=== PATIENT | male | born 1970 | race Caucasian/White ===

== ENCOUNTER 2021-09-23 11:18 | Emergency (ER) | payer OTHER, SELFPAY ==
[2021-09-23 11:38] VITALS: BP 153/96; PULSE 77; RESP 18; TEMP 36.7; O2SAT 96; BMI 26.4
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
== END 2021-09-23 13:29 | disposition home or self-care (01) ==
PROVIDERS: Emergency Provider Emergency Medicine Emergency Medical Services; PCP Internal Medicine
DX: S70.01XA Contusion of right hip, initial encounter (principal); S50.811A Abrasion of right forearm, initial encounter; V43.52XA Car driver injured in collision with other type car in traffic accident, initial encounter; Y93.89 Activity, other specified; Y92.410 Unspecified street and highway as the place of occurrence of the external cause; Y99.9 Unspecified external cause status
CPT/HCPCS: 99282; 99283

== ENCOUNTER 2022-02-14 15:16 | Outpatient (REF) | payer OTHER, SELFPAY ==
[2022-02-14 15:32] LABS: MANUAL DIFF FLAG NO
[2022-02-14 15:57] LABS: Basophils Absolute Auto 0.1 X10*3/uL (0.0-0.2); Basophils Percent Auto 0.6 % (0-2); Eosinophils Absolute Auto 0.3 X10*3/uL (0.0-0.4); Eosinophils Percent Auto 3.3 % (0-4); Hematocrit 46.8 % (42.0-52.0); Hemoglobin 15.5 g/dl (14.0-18.0); Imm Gran Abs Auto 0.02 X10*3/uL (0.00-0.03); Imm Gran Pct Auto 0.2 % (0.0-0.4); Lymphocytes Absolute Auto 2.7 X10*3/uL (1.2-4.9); Mean Corpuscular HGB Conc 33.1 g/dl (31.0-36.0); Mean Corpuscular Hemoglobin 29.9 pg (27.0-33.0); Mean Corpuscular Volume 90.3 fL (80.0-98.0); Monocytes Absolute Auto 0.7 X10*3/uL (0.1-1.2); Monocytes Percent Auto 7.3 % (2-11); Neutrophils Absolute Auto 6.1 x10*3/uL (2.0-8.3); Neutrophils Percent Auto 61.6 % (45-73); Platelet Count 307 X10*3/uL (160-400); Red Blood Count 5.18 X10*6/uL (4.60-5.80); Red Cell Distribution Width 12.7 % (11.0-16.0); White Blood Count 9.8 X10*3/uL (4.8-10.8)
[2022-02-14 16:20] LABS: Alanine Aminotransferase 38 U/L (0-40); Albumin Level 4.4 g/dL (3.5-5.0); Alkaline Phosphatase 109 U/L (39-117); Anion Gap 14 (12-20); Aspartate Amino Transferase 24 U/L (5-37); Bilirubin Total 0.6 mg/dL (0.0-1.0); Blood Urea Nitrogen 16 mg/dL (9-16); Calcium 9.9 mg/dL (8.4-10.2); Carbon Dioxide 28 mmol/L (22-29); Chloride 105 mmol/L (96-108); Cholesterol 185 mg/dL; Estimated Glomerular Filt Rate > 60; Glucose Fasting 116 mg/dL (60-99); HDL Cholesterol 35 mg/dL; LDL Cholesterol Calculated 119 mg/dl; Potassium 4.9 mmol/L (3.3-5.1); Sodium 142 mmol/L (135-145); Total Protein 7.2 g/dL (6.5-8.0); Triglycerides 157 mg/dL
== END 2022-02-14 15:17 | disposition home or self-care (01) ==
LOC: HO.LAB 15:16
PROVIDERS: PCP Internal Medicine; Visit Provider Internal Medicine
DX: Z00.00 Encounter for general adult medical examination without abnormal findings (principal)
CPT/HCPCS: 36415; 80053; 80061; 85025

== ENCOUNTER 2022-06-13 21:32 | Emergency (ER) | payer OTHER, SELFPAY ==
--- NOTE | ~2022-06-13 | CT_ITS ---
EXAMINATION: CT ANGIOGRAM CHEST CLINICAL INFORMATION: Asymmetrical hypertension, question coarctation COMPARISON: None available. TECHNIQUE: Multiple axial images were obtained through the chest after the administration of 70 mL of Omnipaque 350 intravenous contrast. Extensive vascular post-processing including two-dimensional and three-dimensional reformatted images were created and reviewed on an independent workstation. This CT examination was performed using dose optimization techniques as appropriate, variously including the following: *Automated exposure control *Adjustment of mA and/or kV according to patient size (this includes techniques or standardized protocols for targeted exams where dose is matched to indication/reason for exam; i.e. extremities or head) *Use of iterative reconstruction technique DLP: 371 mGy-cm FINDINGS: No evidence of aortic aneurysm or dissection. Mild ductus diverticulum noted in the proximal descending aorta. No aortic luminal narrowing to suggest aortic coarctation. The descending aorta is mildly tortuous. Visualized segments of the great vessels off the aortic arch appear unremarkable. No filling defects are seen in the main, lobar, or segmental pulmonary arteries to suggest the presence of pulmonary emboli. Mild upper lobe predominant emphysema. No regions of consolidation bilaterally. No pneumothorax or pleural effusion. Minimal atelectasis in the basilar right lower lobe. The visualized thyroid gland is unremarkable. There are subcentimeter mediastinal lymph nodes within the range of normal variation. Cardiac size is within normal limits; no pericardial effusion. Mild coronary artery calcifications. No axillary lymphadenopathy is present. Visualized portions of the upper abdomen are within normal limits. Multilevel endplate osteophytes noted in the spine. CT/CT angio chest aorta IMPRESSION: 1. No evidence of aortic coarctation or acute aortic pathology. 2. Mild upper lobe predominant emphysema. 3. Mild coronary artery calcifications. Correlation with cardiac risk factors is recommended.
[2022-06-13 21:33] VITALS: BP 199/116; PULSE 78; RESP 18; TEMP 36.8; O2SAT 98; BMI 25.8
--- NOTE | 2022-06-13 21:36 | ECG_ITS ---
Test Reason : HEADACHE Blood Pressure : / mmHG Vent. Rate : 069 BPM Atrial Rate : 069 BPM P-R Int : 100 ms QRS Dur : 090 ms QT Int : 354 ms P-R-T Axes : 038 049 046 degrees QTc Int : 379 ms Sinus rhythm with short NM Otherwise normal ECG No previous ECGs available Referred By: Carlos Yanez Electronically Signed By:DOMENIC DOYLE
--- NOTE | 2022-06-13 21:37 | ED_ITS ---
HPI - General Adult General Chief complaint: Headache <Carlos Yanez - Last Filed: 06/13/22 21:40> Stated complaint: elevated bp taken at home 173/115 <Carlos Yanez - Last Filed: 06/13/22 21:40> Time Seen by Provider: 06/14/22 00:20 <Carlos Yanez - Last Filed: 06/13/22 21:40> Source: patient <Nasir Nichols MD - Last Filed: 06/14/22 01:56> Mode of arrival: ambulatory <Nasir Nichols MD - Last Filed: 06/14/22 01:56> Limitations: no limitations <Nasir Nichols MD - Last Filed: 06/14/22 01:56> History of Present Illness HPI narrative: Patient history of hypertension on carvedilol 6.25 mg twice daily for the last 5 years with well controlled blood pressure comes here as having some chest is has venous and head heaviness last 24 hours check his blood pressure was 173/115 at home no intake of NSAIDs no stress no change in lifestyle <Nasir Nichols MD - Last Filed: 06/14/22 01:56> Related Data Home medications: Previous Rx's Medication Instructions Recorded losartan 25 mg tablet 25 mg PO DAILY #30 tabs 06/14/22 <Carlos Yanez - Last Filed: 06/13/22 21:40> Allergies/adverse reactions: Allergies Allergy/AdvReac Type Severity Reaction Status Date / Time No Known Allergies Allergy Unverified 10/24/19 14:53 <Carlos Yanez - Last Filed: 06/13/22 21:40> Review of Systems Review of Systems: Yes all other systems are reviewed and are negative <Nasir Nichols MD - Last Filed: 06/14/22 01:56> [facility] Social History Social History: Social History Alcohol intake: current Alcohol intake frequency: a few times a week Smoked in Last 30 Days: Yes Use of substances other than those prescribed or required for medical reasons: No Advance Directives: No Advance Directives Information Provided: Yes <Carlos Yanez - Last Filed: 06/13/22 21:40> Physical Exam ED Vital Signs: Vital Signs - 24 hr 06/13/22 21:33 06/14/22 00:04 Temperature 98.2 F 98.2 F Pulse Rate 78 68 Respiratory Rate 18 15 Blood Pressure 199/116 H 179/94 H Pulse Oximetry 98 96 Oxygen Delivery Method Room Air Room Air BMI result Body Mass Index 25.8 <Carlos Yanez - Last Filed: 06/13/22 21:40> Vital Signs - 24 hr 06/13/22 21:33 06/14/22 00:04 Temperature 98.2 F 98.2 F Pulse Rate 78 68 Respiratory Rate 18 15 Blood Pressure 199/116 H 179/94 H Pulse Oximetry 98 96 Oxygen Delivery Method Room Air Room Air BMI result Body Mass Index 25.8 <Nasir Nichols MD - Last Filed: 06/14/22 01:56> Appearance: Alert. Oriented X3. No acute distress. Eyes: PERRLA, No Nystagmus ENT: Pharynx normal. Oral Mucosa moist Neck: Normal inspection. Neck supple. CVS: Normal heart rate and rhythm. Pulses normal. Respiratory: No respiratory distress. Equal air entry bilateral, no wheezing /rales/rhonchi Abdomen: Soft and nontender. Bowel sounds are present, no mass palpable, no CVA tenderness Skin: Skin warm and dry. Normal skin color. Normal skin turgor. Extremities: No lower extremity edema. No calf tenderness Neuro: Oriented X 3. No motor deficit. No sensory deficit.No cerebellar signs , cranial nerves II-XII intact <Nasir Nichols MD - Last Filed: 06/14/22 01:56> Course Course Course Narrative: 51-year-old male with past medical history significant for high blood pressure, high cholesterol presents for evaluation of ?feeling funny and high blood pressure. ? Patient reports that he checked his blood pressure because he was feeling funny and complained of a headache, dizziness and some mild left- sided chest pain. He took his blood pressure and it was ?175/113. He was elevated to 199/116. The patient takes carvedilol 6.25mg b.i.d. for his blood pressure. Denies any recent changes to his medications. Given the chest pain and elevated blood pressure I ordered an EKG and labs. <Carlos Yanez - Last Filed: 06/13/22 21:40> Medications Administered Discontinued Medications Generic Name Dose Route Start Last Admin Trade Name Freq PRN Reason Stop Dose Admin Iohexol 70 ml 06/14/22 01:22 06/14/22 01:22 Iohexol 350 Mg/Ml 100 Ml Infus..Btl IV 06/14/22 01:23 70 ml ONCE ONE Administration <Carlos Yanez - Last Filed: 06/13/22 21:40> Medications Administered Discontinued Medications Generic Name Dose Route Start Last Admin Trade Name Freq PRN Reason Stop Dose Admin Iohexol 70 ml 06/14/22 01:22 06/14/22 01:22 Iohexol 350 Mg/Ml 100 Ml Infus..Btl IV 06/14/22 01:23 70 ml ONCE ONE Administration <Nasir Nichols MD - Last Filed: 06/14/22 01:56> Medical Decision Making Medical Decision Making [facility] Narrative: Blood pressure checked in both arms right arm blood pressure was 144/86 and left was 172//91 blood pressure was checked multiple times is asymmetrically elevated blood pressure facial not aware of his at PCP office blood pressure was checked on the right side only will do CTA chest to rule out coarctation of aorta or any major vascular anomaly CTA chest negative for acute discharge patient on losartan <Nasir Nichols MD - Last Filed: 06/14/22 01:56> Lab Data [facility] Lab Attestation statement: I reviewed the patient's lab results. <Nasir Nichols MD - Last Filed: 06/14/22 01:56> Result Diagrams: 06/13/22 21:46 06/13/22 21:46 <Carlos Yanez - Last Filed: 06/13/22 21:40> Labs: Lab Results 06/13/22 06/13/22 06/13/22 Range/Units 21:46 21:46 21:46 WBC 12.3 H (4.8-10.8) X10*3/uL RBC 5.28 (4.60-5.80) X10*6/uL Hgb 16.2 (14.0-18.0) g/dl Hct 47.5 (42.0-52.0) % MCV 90.0 (80.0-98.0) fL MCH 30.7 (27.0-33.0) pg MCHC 34.1 (31.0-36.0) g/dl RDW 13.6 (11.0-16.0) % Plt Count 310 (160-400) X10*3/uL MPV 9.5 (9.4-12.4) fL Immature Gran % (Auto) 0.2 (0.0-0.4) % Neut % (Auto) 59.1 (45-73) % Lymph % (Auto) 29.5 (20-40) % [place] % (Auto) 6.7 (2-11) % Eos % (Auto) 3.6 (0-4) % Baso % (Auto) 0.9 (0-2) % Lymph # (Auto) 3.6 (1.2-4.9) X10*3/uL [place] # (Auto) 0.8 (0.1-1.2) X10*3/uL Eos # (Auto) 0.4 (0.0-0.4) X10*3/uL Baso # (Auto) 0.1 (0.0-0.2) X10*3/uL Abs Immat Gran (auto) 0.03 (0.00-0.03) X10*3/uL Absolute Neuts (auto) 7.3 (2.0-8.3) x10*3/uL Absolute Nucleated RBC 0.000 (0.0-0.012) X10*3/uL Nucleated RBC % (auto) 0.0 (0.0-0.2) /100WBC Sodium 142 (135-145) mmol/L Potassium 4.8 (3.3-5.1) mmol/L Chloride 104 (96-108) mmol/L Carbon Dioxide 31 H (22-29) mmol/L Anion Gap 12 (12-20) BUN 14 (9-16) mg/dL Creatinine 0.95 (0.5-1.4) mg/dL Estim Creat Clear Calc 91.0 Estimated GFR > 60 Random Glucose 119 H (60-115) mg/dL Calcium 9.9 (8.4-10.2) mg/dL Magnesium 2.0 (1.6-2.6) mg/dL Total Bilirubin 0.4 (0.0-1.0) mg/dL AST 28 (5-37) U/L ALT 42 H (0-40) U/L Alkaline Phosphatase 91 (39-117) U/L Troponin I High Sens < 2.7 (<3.5-35.0) ng/L Total Protein 7.3 (6.5-8.0) g/dL Albumin 4.6 (3.5-5.0) g/dL Lipase 19 (8-78) U/L <Carlos Yanez - Last Filed: 06/13/22 21:40> Lab Results 06/13/22 06/13/22 06/13/22 Range/Units 21:46 21:46 21:46 WBC 12.3 H (4.8-10.8) X10*3/uL RBC 5.28 (4.60-5.80) X10*6/uL Hgb 16.2 (14.0-18.0) g/dl Hct 47.5 (42.0-52.0) % MCV 90.0 (80.0-98.0) fL MCH 30.7 (27.0-33.0) pg MCHC 34.1 (31.0-36.0) g/dl RDW 13.6 (11.0-16.0) % Plt Count 310 (160-400) X10*3/uL MPV 9.5 (9.4-12.4) fL Immature Gran % (Auto) 0.2 (0.0-0.4) % Neut % (Auto) 59.1 (45-73) % Lymph % (Auto) 29.5 (20-40) % [place] % (Auto) 6.7 (2-11) % Eos % (Auto) 3.6 (0-4) % Baso % (Auto) 0.9 (0-2) % Lymph # (Auto) 3.6 (1.2-4.9) X10*3/uL [place] # (Auto) 0.8 (0.1-1.2) X10*3/uL Eos # (Auto) 0.4 (0.0-0.4) X10*3/uL Baso # (Auto) 0.1 (0.0-0.2) X10*3/uL Abs Immat Gran (auto) 0.03 (0.00-0.03) X10*3/uL Absolute Neuts (auto) 7.3 (2.0-8.3) x10*3/uL Absolute Nucleated RBC 0.000 (0.0-0.012) X10*3/uL Nucleated RBC % (auto) 0.0 (0.0-0.2) /100WBC Sodium 142 (135-145) mmol/L Potassium 4.8 (3.3-5.1) mmol/L Chloride 104 (96-108) mmol/L Carbon Dioxide 31 H (22-29) mmol/L Anion Gap 12 (12-20) BUN 14 (9-16) mg/dL Creatinine 0.95 (0.5-1.4) mg/dL Estim Creat Clear Calc 91.0 Estimated GFR > 60 Random Glucose 119 H (60-115) mg/dL Calcium 9.9 (8.4-10.2) mg/dL Magnesium 2.0 (1.6-2.6) mg/dL Total Bilirubin 0.4 (0.0-1.0) mg/dL AST 28 (5-37) U/L ALT 42 H (0-40) U/L Alkaline Phosphatase 91 (39-117) U/L Troponin I High Sens < 2.7 (<3.5-35.0) ng/L Total Protein 7.3 (6.5-8.0) g/dL Albumin 4.6 (3.5-5.0) g/dL Lipase 19 (8-78) U/L <Nasir Nichols MD - Last Filed: 06/14/22 01:56> Independent Interpretation I performed an independent interpretation of an: EKG <Nasir Nichols MD - Last Filed: 06/14/22 01:56> Interpretation: Normal sinus rhythm heart rate 69 beats per normal interval normal axis no acute ST-T changes no acute ischemia <Nasir Nichols MD - Last Filed: 06/14/22 01:56> Radiology Impression Discussion of test interpretation with radiology: I have reviewed the radiologist's reading. <Nasir Nichols MD - Last Filed: 06/14/22 01:56> Radiologist Impression: [address] [address] [address] Scan Report Signed Patient: Jose A Godwin MR#: [id number] : 1970 Acct:[id number] Age/Sex: 51 / M ADM Date: 06/14/22 Loc: HO.ED Attending Dr: Ordering Physician: Nasir Nichols MD Date of Service: 06/14/22 Procedure(s): CT angio chest aorta Accession Number(s): [id number] cc: Nasir Nichols MD~ EXAMINATION: CT ANGIOGRAM CHEST CLINICAL INFORMATION: Asymmetrical hypertension, question coarctation? COMPARISON: None available. TECHNIQUE: Multiple axial images were obtained through the chest after the administration of 70 mL of Omnipaque 350 intravenous contrast. Extensive vascular post-processing including two-dimensional and three-dimensional reformatted images were created and reviewed on an independent workstation. This CT examination was performed using dose optimization techniques as appropriate, variously including the following: *Automated exposure control *Adjustment of mA and/or kV according to patient size (this includes techniques or standardized protocols for targeted exams where dose is matched to indication/reason for exam; i.e. extremities or head) *Use of iterative reconstruction technique DLP: 371 mGy-cm FINDINGS: No evidence of aortic aneurysm or dissection. Mild ductus diverticulum noted in the proximal descending aorta. No aortic luminal narrowing to suggest aortic coarctation. The descending aorta is mildly tortuous. Visualized segments of the great vessels off the aortic arch appear unremarkable. No filling defects are seen in the main, lobar, or segmental pulmonary arteries to suggest the presence of pulmonary emboli. Mild upper lobe predominant emphysema. No regions of consolidation bilaterally. No pneumothorax or pleural effusion. Minimal atelectasis in the basilar right lower lobe. The visualized thyroid gland is unremarkable. There are subcentimeter mediastinal lymph nodes within the range of normal variation. Cardiac size is within normal limits; no pericardial effusion. Mild coronary artery calcifications. No axillary lymphadenopathy is present. Visualized portions of the upper abdomen are within normal limits. Multilevel endplate osteophytes noted in the spine. CT/CT angio chest aorta IMPRESSION: 1.? No evidence of aortic coarctation or acute aortic pathology. 2.? Mild upper lobe predominant emphysema. 3.? Mild coronary artery calcifications. Correlation with cardiac risk factors is recommended. <Nasir Nichols MD - Last Filed: 06/14/22 01:56> Discharge Plan Discharge Clinical Impression: Hypertension, uncontrolled <Carlos Yanez - Last Filed: 06/13/22 21:40> Patient Disposition: Home, Self-Care <Carlos Yanez - Last Filed: 06/13/22 21:40> Instructions: Chronic Hypertension (ED) <Carlos Yanez - Last Filed: 06/13/22 21:40> Additional Instructions: Continue medication add losartan 25 mg daily for better control of blood pressure it should be less than 135/85 Follow-up with your PCP A blood pressure in the left arm is higher than the right arm but CT scan was negative for any acute pathology <Carlos Yanez - Last Filed: 06/13/22 21:40> Prescriptions: New losartan 25 mg tablet 25 mg PO DAILY Qty: 30 0RF <Carlos Yanez - Last Filed: 06/13/22 21:40>
[2022-06-13 21:50] LABS: MANUAL DIFF FLAG NO
[2022-06-13 21:52] LABS: Basophils Absolute Auto 0.1 X10*3/uL (0.0-0.2); Basophils Percent Auto 0.9 % (0-2); Eosinophils Absolute Auto 0.4 X10*3/uL (0.0-0.4); Eosinophils Percent Auto 3.6 % (0-4); Hematocrit 47.5 % (42.0-52.0); Hemoglobin 16.2 g/dl (14.0-18.0); Imm Gran Abs Auto 0.03 X10*3/uL (0.00-0.03); Imm Gran Pct Auto 0.2 % (0.0-0.4); Lymphocytes Absolute Auto 3.6 X10*3/uL (1.2-4.9); Lymphocytes Percent Auto 29.5 % (20-40); Mean Corpuscular HGB Conc 34.1 g/dl (31.0-36.0); Mean Corpuscular Hemoglobin 30.7 pg (27.0-33.0); Mean Platelet Volume 9.5 fL (9.4-12.4); Monocytes Absolute Auto 0.8 X10*3/uL (0.1-1.2); Monocytes Percent Auto 6.7 % (2-11); Neutrophils Absolute Auto 7.3 x10*3/uL (2.0-8.3); Neutrophils Percent Auto 59.1 % (45-73); Platelet Count 310 X10*3/uL (160-400); Red Blood Count 5.28 X10*6/uL (4.60-5.80); Red Cell Distribution Width 13.6 % (11.0-16.0); White Blood Count 12.3 X10*3/uL (4.8-10.8)
[2022-06-13 22:08] LABS: Alanine Aminotransferase 42 U/L (0-40); Albumin Level 4.6 g/dL (3.5-5.0); Alkaline Phosphatase 91 U/L (39-117); Anion Gap 12 (12-20); Aspartate Amino Transferase 28 U/L (5-37); Bilirubin Total 0.4 mg/dL (0.0-1.0); Blood Urea Nitrogen 14 mg/dL (9-16); Calcium 9.9 mg/dL (8.4-10.2); Carbon Dioxide 31 mmol/L (22-29); Chloride 104 mmol/L (96-108); Estimated Glomerular Filt Rate > 60; Glucose Random 119 mg/dL (60-115); Lipase 19 U/L (8-78); Potassium 4.8 mmol/L (3.3-5.1); Sodium 142 mmol/L (135-145); Total Protein 7.3 g/dL (6.5-8.0)
[2022-06-13 22:19] LABS: Troponin-I High Sensitivity < 2.7 ng/L (<3.5-35.0)
[2022-06-14 00:04] VITALS: BP 179/94; PULSE 68; RESP 15; TEMP 36.8; O2SAT 96
[2022-06-14] MEDS: iohexoL 350 MG/ML 100 ML INFUS..BTL 70 ML IV (01:22)
[2022-06-14 01:58] VITALS: BP 158/94; PULSE 70; RESP 17; TEMP 36.6; O2SAT 95
[2022-06-14] MEDS: Losartan Potassium 25 MG TABLET PO (02:03)
== END 2022-06-14 02:10 | disposition home or self-care (01) ==
PROVIDERS: Physician Assistant; Emergency Provider Internal Medicine; PCP Internal Medicine
DX: I10 Essential (primary) hypertension (principal)
CPT/HCPCS: 36415; 71275; 80053; 83690; 83735; 84484; 85025; 93005; 99284; 99285; Q9967

== ENCOUNTER 2023-07-14 15:56 | Outpatient (REF) | payer OTHER, SELFPAY ==
[2023-07-14 16:06] LABS: MANUAL DIFF FLAG NO
[2023-07-14 17:47] LABS: Basophils Absolute Auto 0.1 X10*3/uL (0.0-0.2); Basophils Percent Auto 0.7 % (0-2); Eosinophils Absolute Auto 0.3 X10*3/uL (0.0-0.4); Eosinophils Percent Auto 3.1 % (0-4); Hematocrit 46.1 % (42.0-52.0); Hemoglobin 15.6 g/dl (14.0-18.0); Imm Gran Abs Auto 0.03 X10*3/uL (0.00-0.03); Imm Gran Pct Auto 0.3 % (0.0-0.4); Lymphocytes Absolute Auto 2.9 X10*3/uL (1.2-4.9); Lymphocytes Percent Auto 29.1 % (20-40); Mean Corpuscular HGB Conc 33.8 g/dl (31.0-36.0); Mean Corpuscular Hemoglobin 30.8 pg (27.0-33.0); Mean Corpuscular Volume 90.9 fL (80.0-98.0); Mean Platelet Volume 10.5 fL (9.4-12.4); Monocytes Absolute Auto 0.7 X10*3/uL (0.1-1.2); Monocytes Percent Auto 6.8 % (2-11); Platelet Count 307 X10*3/uL (160-400); Red Blood Count 5.07 X10*6/uL (4.60-5.80); Red Cell Distribution Width 13.9 % (11.0-16.0)
[2023-07-14 18:17] LABS: Alanine Aminotransferase 30 U/L (0-40); Albumin Level 4.5 g/dL (3.5-5.0); Alkaline Phosphatase 93 U/L (39-117); Anion Gap 12 (12-20); Aspartate Amino Transferase 23 U/L (5-37); Bilirubin Total 0.6 mg/dL (0.0-1.0); Blood Urea Nitrogen 13 mg/dL (9-16); Carbon Dioxide 29 mmol/L (22-29); Chloride 105 mmol/L (96-108); Cholesterol 197 mg/dL (<200); Estimated Glomerular Filt Rate > 60; Glucose Random 99 mg/dL (60-115); HDL Cholesterol 50 mg/dL (>40); LDL Cholesterol Calculated 124 mg/dL (<100); Potassium 4.4 mmol/L (3.3-5.1); Sodium 142 mmol/L (135-145); Total Protein 7.4 g/dL (6.5-8.0); Triglycerides 115 mg/dL (<150)
[2023-07-14 18:39] LABS: Prostate Specific Antigen 1.13 ng/mL (<0.05-4.0)
== END 2023-07-14 15:57 | disposition home or self-care (01) ==
LOC: HO.LAB 15:56
PROVIDERS: PCP Internal Medicine; Visit Provider Internal Medicine
DX: I10 Essential (primary) hypertension (principal); E78.00 Pure hypercholesterolemia, unspecified; Z12.5 Encounter for screening for malignant neoplasm of prostate
CPT/HCPCS: 36415; 80053; 80061; 84153; 85025

== ENCOUNTER 2023-10-17 15:54 | Outpatient (REF) | payer OTHER, SELFPAY ==
--- NOTE | ~2023-10-17 | XR_ITS ---
EXAMINATION: XR CHEST, 2 VIEWS CLINICAL INFORMATION: Rule out lesion. Pain in the shoulder. Numbness in the fingers. COMPARISON: 04/15/2019 TECHNIQUE: PA and lateral views of the chest were obtained. FINDINGS: Lungs are clear. No consolidation, pneumothorax, or pleural effusion. Cardiac and mediastinal contours are normal. Pulmonary vasculature is unremarkable. Trachea is midline. Mild multilevel degenerative disc disease in the thoracic spine with endplate osteophytes and loss of intervertebral disc height. XR/XR chest 2V IMPRESSION: 1. No acute pulmonary findings. 2. Mild multilevel degenerative disc disease in the thoracic spine. Electronically signed by: Aki Medrano MD 10/31/2023 06:24 PM EDT
--- NOTE | ~2023-10-17 | XR_ITS ---
EXAMINATION: XR SHOULDER, LEFT CLINICAL INFORMATION: Left shoulder pain. COMPARISON: None available. TECHNIQUE: AP external rotation, Grashey, scapular Y, and axillary views of the left shoulder. FINDINGS: There is mild acromioclavicular osteoarthritis. Glenohumeral joint is well preserved. No fracture. Alignment is anatomic. Soft tissues are normal with no abnormal calcifications. XR/XR shoulder LT min 2V IMPRESSION: Mild acromioclavicular osteoarthritis. No acute osseous findings. Electronically signed by: Aki Medrano MD 10/31/2023 06:22 PM EDT
== END 2023-10-17 15:55 | disposition home or self-care (01) ==
LOC: HO.XRAY 15:54
PROVIDERS: PCP Internal Medicine; Visit Provider Internal Medicine
DX: M25.512 Pain in left shoulder (principal)
CPT/HCPCS: 71046; 73030

== ENCOUNTER 2024-07-08 13:26 | Outpatient (AMB) | payer OTHER, SELFPAY ==
--- NOTE | 2024-07-08 13:19 | A.OFFPC_ITS ---
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 Father No problems noted. Social History Housing: House Alcohol intake: current Alcohol intake frequency: a few times a week Patient Tobacco Use Status: Former Tobacco user e-Cigarette/Vaping Use: Former Use service: No Current occupational status: employed Cognitive needs: No Hearing needs: No Vision needs: Yes (reading glasses) Questionnaire PHQ-9 Over the last 2 weeks, how often have you been bothered by any of the following problems? 1. Little interest or pleasure in doing things: not at all 2. Feeling down, depressed, or hopeless: not at all 3. Trouble falling or staying asleep, or sleeping too much: not at all 4. Feeling tired or having little energy: several days 5. Poor appetite or overeating: not at all 6. Feeling bad about yourself - or that you are a failure or have let yourself or your family down: not at all 7. Trouble concentrating on things, such as reading the newspaper or watching television: not at all 8. Moving or speaking so slowly that other people could have noticed. Or the opposite - being so fidgety or restless that you have been moving around a lot more than usual: not at all 9. Thoughts that you would be better off or of hurting yourself in some way: not at all Total score: 1 Source: Developed by Drs. Arias Scott, Mamadou Mulligan and colleagues, with an educational kenisha from [employer]. Thrive Questionnaire Date Thrive assessed: 07/08/24 I am a: Patient Within the past 12 months, did the food you bought not last and you didn't have the money to get more?: Never true Within the past 12 months, did you worry whether your food would run out before you got money to buy more?: Never true Do you have trouble paying for medicines?: No Do you have trouble getting transportation to medical appointments?: No Do you have trouble paying your heating and electricity bill?: No Do you have trouble taking care of your child, family member or friend?: No Do you have trouble with day-to-day activities such as bathing, preparing meals, shopping, managing finances, etc.?: No Are you currently unemployed and looking for a job?: No Are you interested in more education?: No THRIVE Score: 0 AUDIT C Alcohol Use Questionnaire (AUDIT-C) 1. How often do you have a drink containing alcohol?: Monthly or less 2. How many drinks containing alcohol do you have on a typical day when you are drinking?: 1 or 2 3. How often do you have six or more drinks on one occasion?: Less than monthly Total Score: 2 EUNICE-7 AMB Questionnaire EUNICE-7 Date EUNICE - 7 assessed: 07/08/24 Feeling nervous, anxious, or on edge: 0 = Not at all Not being able to stop or control worryin = Not at all Worrying too much about different things: 0 = Not at all Trouble relaxin = Not at all Being so restless that it is hard to sit still: 0 = Not at all Becoming easily annoyed or irritable: 0 = Not at all Feeling afraid as if something awful might happen: 0 = Not at all Total EUNICE-7 score (0-4 normal; 5-9 mild; 10-14 moderate; 15-21 severe): 0 Source: Developed by Drs. Arias Scott, Mamadou Mulligan and colleagues, with an educational kenisha from [employer]. Physical exam (Primary Care) Vital Signs: Last Vital Signs Temp 98.5 F 07/08/24 13:37 Pulse 74 07/08/24 13:37 BP 138/86 07/08/24 13:37 Pulse Ox 96 07/08/24 13:37 Oxygen Delivery Method Room Air 07/08/24 13:37 BMI result Body Mass Index 26.3 Tobacco/Smoking Status: Tobacco use Status Tobacco use date assessed 07/08/24 07/08/24 13:21 Patient Tobacco Use Status Former Tobacco user 07/08/24 13:44 e-Cigarette/Vaping Use Former Use 07/08/24 13:44 PHQ-9: PHQ-9 Score PHQ-9: Total score 1 07/08/24 13:44 Thrive Assessment: Date of Thrive Assessment Date Thrive assessed 07/08/24 07/08/24 13:21 Coding Level of Care Code New Pt Level 4 (41286) Complex EM visit Add On G2211 Diagnoses Essential hypertension I10 Assessment & Plan Assessment & Plan (1) Essential hypertension: Code(s): I10 - Essential (primary) hypertension Category: Medical Plan: BP in range. Continue meds at same dosage. Plan History of Present Illness - The patient is a 53-year-old male presenting with a concern regarding a prior ligamentous injury to the shoulder. Approximately a year ago, the patient sustained a shoulder injury, and Dr. East confirmed a ligamentous issue upon examination. X-rays were obtained, though the patient received no follow-up communication, leading him to assume no significant findings. - Past medical history is notable for bladder cancer diagnosed 11 years ago, managed with cystoscopic interventions. - Family cancer history includes a grandmother with pancreatic cancer. The patient denies a familial history of colorectal cancer. - Colorectal cancer screening options were reviewed, appropriate for his age, including colonoscopy and Cologuard. The decision was made to pursue colonoscopy. - No current symptoms of hematochezia were reported. Social History - Currently employed by [employer], soon transitioning to work at [employer]. - Denies the use of alcohol or recreational drugs but confirms current tobacco use, with an acknowledgment of attempts to discontinue. Review of Systems - Gastrointestinal: Denies blood in the stool. - Musculoskeletal: Reports prior ligamentous injury of the shoulder, currently without acute pain. Physical Exam General: Cooperative and healthy appearing Nutritional Appearance: Well nourished Orientation/consciousness: Patient oriented x3 Limitations: No limitations Head: Normal to inspection General: Appearance normal, both eyes and all related structures Neck: Normal visual inspection Chest: Normal palpation of entire chest wall Respiratory: Smoker ormal respiratory effort Neurology: Patient oriented x3 Results - Imaging tests: Shoulder X-rays obtained with no follow-up on findings reported by the patient. - Laboratory tests: No specific test results were communicated or reviewed during this visit. Plan 1. Ligamentous Injury Of The Shoulder - Monitor symptoms; no current intervention required unless modifications in condition occur. 2. Bladder Cancer History Of - Continue routine surveillance. 3. Colorectal Cancer Screening - Proceed with colonoscopy for screening purposes. 4. Tobacco Use Disorder - Continued advice on smoking cessation and suggested supportive resources. Discussion Notes I concluded that the patient's prior shoulder injury has not yielded further concerns due to the absence of follow-up communication. We discussed his history of bladder cancer and confirmed that no new interventions are required but will maintain regular surveillance. Colorectal cancer screening options were evaluated, and patient opted for a colonoscopy. We discussed potential risks and benefits of colonoscopy and affirmed that it remains the gold standard for col orectal screening. Return precautions were explained in case any unusual symptoms arise. Regarding smoking, we discussed cessation strategies, and I advised exploring resources for aid. Follow-up was arranged for six months unless deterioration occurs. Patient Instructions - Proceed with the colonoscopy as planned. - Monitor shoulder and report any return of pain or discomfort. - Continue attempts to stop smoking; use available resources for assistance. - Follow up in six months unless symptoms change. - Visit the emergency room if you notice signs of gastrointestinal bleeding or any concerning symptoms. Orders: Orders Basic Metabolic Panel Today I10 - Essential (primary) hypertension Complete Blood Count no Diff Today I10 - Essential (primary) hypertension Lipid Panel Today I10 - Essential (primary) hypertension Liver Panel Today I10 - Essential (primary) hypertension Thyroid Stimulating Hormone Today I10 - Essential (primary) hypertension UA and rflx microscopic Today I10 - Essential (primary) hypertension Referrals Gastroenterology Referral Z12.11 - Encounter for screening for malignant neoplasm of colon Medications: Discontinued losartan Discontinued Reason: Patient no longer taking 25 mg PO DAILY 90 tabs 1RF
[2024-07-08 13:37] VITALS: BP 138/86; PULSE 74; TEMP 36.9; O2SAT 96; BMI 26.3
== END 2024-07-08 14:07 | disposition home or self-care (01) ==
LOC: HO.HMCHD 13:27
PROVIDERS: PCP Internal Medicine; Visit Provider Internal Medicine
DX: I10 Essential (primary) hypertension (principal)

== ENCOUNTER → 2024-07-08 13:26 | Outpatient (BNVA) | payer OTHER, SELFPAY | PROVIDERS: PCP Internal Medicine; Visit Provider Internal Medicine ==

== ENCOUNTER 2025-01-07 06:45 | Outpatient (REF) | payer BC, SELFPAY ==
[2025-01-07 07:16] LABS: Hematocrit 45.8 % (42.0-52.0); Hemoglobin 15.7 g/dl (14.0-18.0); Mean Corpuscular HGB Conc 34.3 g/dl (31.0-36.0); Mean Corpuscular Hemoglobin 31.2 pg (27.0-33.0); Mean Corpuscular Volume 91.1 fL (80.0-98.0); NRBC Abs Auto 0.000 X10*3/uL (0.0-0.012); NRBC Pct Auto 0.0 /100WBC (0.0-0.2); Platelet Count 297 X10*3/uL (160-400); Red Blood Count 5.03 X10*6/uL (4.60-5.80); White Blood Count 8.4 X10*3/uL (4.8-10.8)
[2025-01-07 07:57] LABS: Alanine Aminotransferase 39 U/L (0-40); Albumin Level 4.5 g/dL (3.5-5.0); Alkaline Phosphatase 94 U/L (39-117); Anion Gap 13 (12-20); Aspartate Amino Transferase 26 U/L (5-37); Blood Urea Nitrogen 13 mg/dL (9-16); Calcium 9.4 mg/dL (8.4-10.2); Carbon Dioxide 27 mmol/L (22-29); Chloride 108 mmol/L (96-108); Cholesterol 180 mg/dL (<200); Estimated Glomerular Filt Rate > 60; HDL Cholesterol 38 mg/dL (>40); Potassium 4.5 mmol/L (3.3-5.1); Sodium 143 mmol/L (135-145); Total Protein 7.1 g/dL (6.5-8.0); Triglycerides 248 mg/dL (<150)
[2025-01-07 08:07] LABS: Thyroid Stimulating Hormone 1.03 uIU/mL (0.32-4.0)
[2025-01-07 08:48] LABS: Appearance Urine Clear; Glucose Urine UA Negative (Negative); PH 5.5 (5.0-9.0); Specific Gravity - Urine 1.020 (1.005-1.025)
== END 2025-01-07 06:46 | disposition home or self-care (01) ==
LOC: HO.LAB 06:45
PROVIDERS: PCP Internal Medicine; Visit Provider Student in an Organized Health Care Education/Training Program
DX: I10 Essential (primary) hypertension (principal)
CPT/HCPCS: 36415; 80048; 80061; 80076; 81003; 84443; 85027

== ENCOUNTER 2025-01-13 15:25 | Outpatient (AMB) | payer BC, SELFPAY ==
--- NOTE | 2025-01-13 15:28 | MHC.PC.OV ---
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 Accompanied by: Self / Same As Patient Allergies No Known Allergies Allergy (Verified 01/13/25 15:28) Medication List - Last Reconciled 01/13/25 by Jeancarlos Khan MD atorvastatin 40 mg PO DAILY carvedilol 6.25 mg PO BID losartan 50 mg PO DAILY Tobacco use date assessed: 07/08/24 Dental Screening Dental Screen Date: 07/08/24 Did you have a dental visit in the last 12 months?: Yes Did you have a dental problem in the last 6 months where you did not have access to dental care?: No Was dental information given to patient?: Patient has dentist HPI HPI Comments History of Present Illness Details History of Present Illness The patient is a 54 year old male presenting for evaluation of fatigue. He reports feeling weak, tired, and having low energy since approximately May. The patient has a history of significant alcohol consumption, drinking 6-8 or more drinks per day, four or more times a week. He states he uses alcohol to help him sleep and that he does not sleep well without it. He denies feeling different or tremulous when he does not drink. The patient has a history of hypertension, for which he is prescribed carvedilol 6.25 mg twice a day and losartan 50 mg. He reports inconsistent timing with his medication, taking the morning carvedilol around 9:30-10 AM and the losartan around dinnertime. He also has a history of hypercholesterolemia, treated with atorvastatin 40 mg, which he takes before bed. Recent lab work was reviewed, showing an improvement in cholesterol levels, with total cholesterol decreasing from 197 to 180 and LDL cholesterol from 124 to 93. Other lab results, including liver, kidney, and thyroid function, were noted to be normal. The patient is due for a colonoscopy, and the gastroenterology office has had difficulty scheduling the appointment with him. Medical History: - Alcohol abuse: Reports drinking 6-8 or more alcoholic beverages per day, at least 4 times per week. - Hypertension: Prescribed carvedilol and losartan. - Hypercholesterolemia: Prescribed atorvastatin 40 mg. Medications: - Atorvastatin 40 mg for hypercholesterolemia. - Carvedilol 6.25 mg twice a day for hypertension. - Losartan 50 mg for hypertension. Diagnostic Results: - Labs: Total cholesterol has decreased from 197 to 180. - Labs: LDL cholesterol has decreased from 124 to 93. - Labs: Liver function, kidney function, and thyroid function are normal. Social History - Substance use: Reports drinking 6-8 or more alcoholic beverages per day, four or more times a week. - Substance use: States he uses alcohol to relax and help with sleep. - Substance use: Denies drinking in the morning. - Employment: The patient has access to an employee assistance program through his work. [facility] Medical History (Updated 01/13/25 @ 15:55 by Jeancarlos Khan MD) Fatigue History of bladder cancer Alcohol use disorder Mixed hyperlipidemia Essential hypertension Family History (Updated 07/08/24 @ 13:43 by Monica Lockwood MA) Mother No problems noted. Father No problems noted. Social History Housing: House Alcohol intake: current Alcohol intake frequency: a few times a week Patient Tobacco Use Status: Current everyday Tobacco user Cigarettes Per Day: 15 Years Smoked: 30 years e-Cigarette/Vaping Use: Never Used service: No Current occupational status: employed Current occupation: [employer] Cognitive needs: No Hearing needs: No Vision needs: Yes (reading glasses) Questionnaire Thrive Questionnaire Date Thrive assessed: 07/08/24 AUDIT C Alcohol Use Questionnaire (AUDIT-C) 1. How often do you have a drink containing alcohol?: 4 or more times a week 2. How many drinks containing alcohol do you have on a typical day when you are drinking?: 5 or 6 3. How often do you have six or more drinks on one occasion?: Daily or almost daily Total Score: 10 Score Reviewed/Action Taken: Yes EUNICE-7 AMB Questionnaire EUNICE-7 Date EUNICE - 7 assessed: 07/08/24 Source: Developed by Drs. Arias Scott, Annmarie Harper, Mamadou Cruz and colleagues, with an educational kenisha from [employer]. Review of Systems Narrative Review of Systems - General: Reports feeling weak, having low energy, and being tired since May. - Neurological: Denies feeling tremulous when not drinking alcohol. - Psychiatric: Reports using alcohol to sleep and denies feeling dependent, but also states he does not sleep well without it. All systems reviewed & are unremarkable except as reviewed in HPI and above Physical exam (Primary Care) Vital Signs: Last Vital Signs Temp 97.8 F 01/13/25 15:30 Pulse 76 01/13/25 15:30 Resp 18 01/13/25 15:30 BP 152/96 H 01/13/25 15:30 Pulse Ox 92 01/13/25 15:30 Oxygen Delivery Method Room Air 01/13/25 15:30 BMI result Body Mass Index 27.1 Tobacco/Smoking Status: Tobacco use Status Tobacco use date assessed 07/08/24 01/13/25 15:36 Patient Tobacco Use Status Current everyday Tobacco 01/13/25 15:36 e-Cigarette/Vaping Use Never Used 01/13/25 15:36 Thrive Assessment: Date of Thrive Assessment Date Thrive assessed 07/08/24 01/13/25 15:36 Narrative Physical Exam General: +Alert and oriented, Well nourished, No acute distress. Eye: Pupils are equal, round and reactive to light, Intact accommodation, Extraocular movements are intact, Normal conjunctiva, Vision unchanged. HENT: Normocephalic, Atraumatic, Tympanic membranes are clear, Normal hearing, Oral mucosa is moist, No pharyngeal erythema, Ear canals patent. Respiratory: Lungs CTA bilaterally, No wheeze, Respirations are non-labored. Cardiovascular: Regular rate, Regular rhythm, S1 auscultated, S2 auscultated, No murmur, Good pulses equal in all extremities, Normal peripheral perfusion, No edema. Gastrointestinal: Soft, Non-tender, Non-distended, Normal bowel sounds, No organomegaly. Musculoskeletal: Normal range of motion, Normal strength, No tenderness, No swelling, No deformity, Normal gait. Integumentary: Warm, Dry, [place], Intact. Neurologic: Alert, Oriented, Normal sensory, Normal motor function, No focal defects, Cranial Nerves II-XII are grossly intact, Normal deep tendon reflexes. Psychiatric: Cooperative, Appropriate mood & affect, Normal judgment. Coding Level of Care Code Est Pt Level 4 (89406) Complex visit Add On G2211 Diagnoses Other fatigue R53.83 Fatigue type: other Essential hypertension I10 Mixed hyperlipidemia E78.2 Alcohol use disorder F10.90 History of bladder cancer Z85.51 Assessment & Plan Assessment & Plan (1) Fatigue: Comment: - The patient's fatigue is likely multifactorial, with a significant contribution from his excessive alcohol intake. - Other potential causes like hypothyroidism have been ruled out by recent lab work. - The plan is to address the alcohol use as a primary variable. - The patient was advised to significantly reduce or stop his alcohol consumption. - If his fatigue does not resolve after addressing his alcohol intake, further evaluation will be pursued. Code(s): R53.83 - Other fatigue Category: Medical Qualifiers: Fatigue type: other Qualified Code(s): R53.83 - Other fatigue (2) Essential hypertension: Comment: - The patient's blood pressure is elevated at 152/96 mmHg, despite being on carvedilol and losartan. - This is likely exacerbated by his high alcohol intake and suboptimal medication adherence/timing. - The medication regimen was adjusted to improve adherence and efficacy: take losartan and one carvedilol in the morning, and the second carvedilol with atorvastatin at night. - The importance of controlling his blood pressure to protect his heart was emphasized. Code(s): I10 - Essential (primary) hypertension Category: Medical (3) Mixed hyperlipidemia: Comment: - The patient's cholesterol has improved on atorvastatin 40 mg, with LDL down to 93. - He will continue the current medication. Code(s): E78.2 - Mixed hyperlipidemia Category: Medical (4) Alcohol use disorder: Comment: - The patient's alcohol consumption of 6-8+ drinks per day, 4 or more times a week, is classified as alcohol abuse. - His AUDIT-C score is 10, indicating high-risk drinking. - He was counseled on the dangers of this level of intake, including its effects on his body, his fatigue, and the significant risk of severe withdrawal, including delirium tremens, seizures, and , if he stops abruptly. - The patient was advised to stop drinking, either cold turkey or by tapering, and was strongly advised to go to the emergency room if he experiences any withdrawal symptoms. - He declined medication to assist with cessation at this time but was informed of available resources, including an employee assistance program. - A follow-up visit is scheduled in four weeks to reassess his alcohol use. Code(s): F10.90 - Alcohol use, unspecified, uncomplicated Category: Medical (5) History of bladder cancer: Comment: - Follows with urology Code(s): Z85.51 - Personal history of malignant neoplasm of bladder Category: Medical Plan: Health Maintenance: - Alcohol cessation: The patient was strongly advised to stop drinking alcohol due to excessive intake (6-8+ drinks/day, 4+ times/week). He was counseled on the serious health risks, including fatal withdrawal, and informed of support resources. - Colon cancer screening: The patient is due for a colonoscopy. A new referral was placed, and he was instructed to schedule the appointment when contacted. - Medication adherence: The patient's medication schedule for hypertension and hypercholesterolemia was reviewed and adjusted to improve compliance and control. - Safety: The patient was advised against operating heavy machinery while drinking. Patient was informed and verbally consented to the use of an ambient scribe for clinic note documentation during this visit. Plan I discussed with the patient that his primary complaint of fatigue is most likely due to his significant alcohol consumption. I explained that while his lab work, including thyroid function, is normal, his alcohol intake of 6-8 or more drinks per day is considered alcohol abuse and can cause his symptoms. I strongly advised him to stop drinking and warned him about the severe risks of alcohol withdrawal, including seizures, delirium tremens, and . I instructed him to go to the emergency room immediately if he experiences any symptoms of withdrawal. He declined medications to help with cessation but was made aware of resources like his employee assistance program. We also discussed his elevated blood pressure of 152/96 mmHg, which is not well-controlled, and adjusted his medication schedule to improve effectiveness. I placed a new referral for his overdue colonoscopy and emphasized the importance of scheduling it. A follow-up visit is scheduled in four weeks to reassess his alcohol use and blood pressure. Orders: Referrals Open Access Screening Colonoscopy Referral Z12.11 - Encounter for screening for malignant neoplasm of colon Patient Instructions: - You need to stop drinking alcohol or significantly cut down. - If you try to stop drinking and start to feel shaky, tremulous, or unwell, you must go to the emergency room immediately. Alcohol withdrawal can be very dangerous and even fatal. - Take your blood pressure and cholesterol medicines as instructed: Take Losartan and Carvedilol in the morning. Take your other Carvedilol pill and your Atorvastatin pill at night. - You are due for a colonoscopy. Our office is putting in a new request for you. Please answer the phone when the specialist's office calls so you can get it scheduled. - There are resources available to help you stop drinking, including your company's employee assistance program. - You have a follow-up appointment in four weeks to check on your progress.
[2025-01-13 15:30] VITALS: BP 152/96; PULSE 76; RESP 18; TEMP 36.6; O2SAT 92; BMI 27.1
== END 2025-01-13 15:50 | disposition home or self-care (01) ==
LOC: HO.HMCHD 15:26
PROVIDERS: PCP Student in an Organized Health Care Education/Training Program; Visit Provider Student in an Organized Health Care Education/Training Program
DX: R53.83 Other fatigue (principal); I10 Essential (primary) hypertension; E78.2 Mixed hyperlipidemia; F10.90 Alcohol use, unspecified, uncomplicated; Z85.51 Personal history of malignant neoplasm of bladder